=== PATIENT | female | born 2000 | race Caucasian/White ===

== ENCOUNTER → 2022-01-25 | Outpatient (REF) | payer BC | LOC: M WUC 17:41 | PROVIDERS: ATTEND Physician Assistant | DX: N39.0 Urinary tract infection, site not specified (principal) ==

== ENCOUNTER → 2022-02-12 | Outpatient (REF) | LOC: M LABSMTC 09:53 | PROVIDERS: ATTEND Family Medicine | DX: Z20.822 Contact with and (suspected) exposure to COVID-19 (principal) ==

== ENCOUNTER → 2022-03-07 | Outpatient (CLI) | payer BC ==
[2022-03-07 13:48] LABS: BLOOD UREA NITROGEN 10 MG/DL (9-23); CALCIUM LEVEL 9.2 MG/DL (8.5-10.1); CARBON DIOXIDE LEVEL 27 MMOL/L (20-31); CHLORIDE LEVEL 106 MMOL/L (98-107); CHOLESTEROL LEVEL 127 MG/DL (<200); CHOLESTEROL RISK RATIO 2.42 (<5); CREATININE FOR GFR 0.68 MG/DL (0.55-1.30); GLOMERULAR FILTRATION RATE > 60.0 (>60); GLUCOSE, FASTING 88 MG/DL (60-100); HDL CHOLESTEROL 52.3 MG/DL (>40); LDL CHOLESTEROL 66.9 MG/DL (<100); NON-HDL-C 75 MG/DL; POTASSIUM SERUM 4.6 MMOL/L (3.5-5.1); SODIUM LEVEL 139 MMOL/L (136-145); TRIGLYCERIDES LEVEL 39 MG/DL (<150)
== END ==
LOC: M PLALAB 10:00
PROVIDERS: ATTEND Family Medicine
DX: Z13.220 Encounter for screening for lipoid disorders (principal); Z13.1 Encounter for screening for diabetes mellitus

== ENCOUNTER → 2022-03-19 | Outpatient (REF) | payer BC | LOC: M SFHCPLAZ 12:52 | PROVIDERS: ATTEND Family Medicine | DX: Z32.01 Encounter for pregnancy test, result positive (principal) ==

== ENCOUNTER → 2022-04-25 | Outpatient (CLI) | payer BC ==
[2022-04-25 14:27] LABS: HEMATOCRIT 40.1 % (36.0-47.0); MEAN CORPUSCULAR HEMOGLOBIN 31.3 pg (27.0-33.0); MEAN CORPUSCULAR HGB CONC 32.4 g/dl (32.0-36.5); MEAN CORPUSCULAR VOLUME 96.6 fl (80.0-96.0); PLATELET COUNT, AUTOMATED 309 10^3/uL (150-450); RED BLOOD COUNT 4.15 10^6/uL (4.00-5.40); WHITE BLOOD COUNT 12.5 10^3/uL (4.0-10.0)
[2022-04-25 15:27] LABS: HIV 1&2 SCREEN CENTAUR NEGATIVE (NEGATIVE)
[2022-04-25 15:35] LABS: HEPATITIS C VIRUS ABY INDEX 0.1 INDEX (<0.8)
[2022-04-25 16:39] LABS: GC DNA AMPLIFICATION NEGATIVE (NEGATIVE)
== END ==
LOC: M PLALAB 11:22
PROVIDERS: ATTEND Advanced Practice Midwife
DX: Z34.80 Encounter for supervision of other normal pregnancy, unspecified trimester (principal)

== ENCOUNTER 2022-06-04 15:26 | Emergency (ER) | payer BC ==
[~2022-06-04] VITALS: Ht 162.6 cm; Wt 84.3 kg
[2022-06-04] MEDS ORDERED: NS 1,000 ML IV ONE (17:40)
[2022-06-04] MEDS ORDERED: ONDANSETRON 4MG 2ML VIAL IV ONE (17:40)
[2022-06-04] MEDS ORDERED: ACETAMINOPHEN TAB 650MG DOSE (2X325MG) PO ONE (17:40)
[2022-06-04 18:50] VITALS: BP 123/65
== END 2022-06-04 19:16 | disposition home or self-care (01) ==
LOC: M ED 15:26
DX: O99.512 Diseases of the respiratory system complicating pregnancy, second trimester (principal); J06.9 Acute upper respiratory infection, unspecified; O98.512 Other viral diseases complicating pregnancy, second trimester; B34.1 Enterovirus infection, unspecified; B34.8 Other viral infections of unspecified site; Z3A.16 16 weeks gestation of pregnancy
CPT/HCPCS: 87486; 87581; 87633; 87798; 96361; 96374; 99284; J2405

== ENCOUNTER → 2022-06-25 | Outpatient (CLI) | payer BC | LOC: M RAD 06:26 | PROVIDERS: ATTEND Obstetrics & Gynecology | DX: Z34.92 Encounter for supervision of normal pregnancy, unspecified, second trimester (principal); Z3A.18 18 weeks gestation of pregnancy ==

== ENCOUNTER 2022-07-08 11:40 | Outpatient (CLI) | payer BC ==
[~2022-07-08] VITALS: Ht 160 cm; Wt 85.5 kg
[2022-07-08 12:01] VITALS: BP 130/67
[2022-07-08] MEDS ORDERED: PRENTAB9 PO (12:06)
[2022-07-08] MEDS ORDERED: HOME MED LIST COMPLETE! XX SCH (12:10)
[2022-07-08 12:30] LABS: HEMATOCRIT 36.5 % (36.0-47.0); HEMOGLOBIN 12.3 g/dl (12.0-15.5); MEAN CORPUSCULAR HEMOGLOBIN 31.7 pg (27.0-33.0); MEAN CORPUSCULAR HGB CONC 33.7 g/dl (32.0-36.5); MEAN CORPUSCULAR VOLUME 94.1 fl (80.0-96.0); PLATELET COUNT, AUTOMATED 283 10^3/uL (150-450); RED BLOOD COUNT 3.88 10^6/uL (4.00-5.40); WHITE BLOOD COUNT 16.2 10^3/uL (4.0-10.0)
[2022-07-08 12:58] LABS: ALBUMIN 2.7 G/DL (3.2-5.2); ALKALINE PHOSPHATASE 84 U/L (46-116); ALT/SGPT 16 U/L (7.0-40); AST/SGOT 10 U/L (<34); BILIRUBIN,TOTAL 0.3 MG/DL (0.3-1.2); BLOOD UREA NITROGEN 7 MG/DL (9-23); CALCIUM LEVEL 8.3 MG/DL (8.5-10.1); CARBON DIOXIDE LEVEL 21 MMOL/L (20-31); CHLORIDE LEVEL 108 MMOL/L (98-107); CREATININE FOR GFR 0.44 MG/DL (0.55-1.30); GLOMERULAR FILTRATION RATE > 60.0 (>60); GLUCOSE, FASTING 132 MG/DL (60-100); POTASSIUM SERUM 3.3 MMOL/L (3.5-5.1); SODIUM LEVEL 137 MMOL/L (136-145); TOTAL PROTEIN 6.1 G/DL (5.7-8.2)
[2022-07-08 13:04] LABS: APPEARANCE, URINE CLOUDY (CLEAR); BACTERIA, URINE AUTO NEGATIVE (NEGATIVE); BILIRUBIN, URINE AUTO NEGATIVE (NEGATIVE); BLOOD, URINE BLOOD NEGATIVE (NEGATIVE); COLOR, URINE YELLOW (YELLOW); GLUCOSE, URINE (UA) AUTO 1+ mg/dL (NEGATIVE); KETONE, URINE AUTO NEGATIVE (NEGATIVE); LEUKOCYTE ESTERASE, URINE AUTO NEGATIVE (NEGATIVE); MUCUS, URINE SMALL (NEGATIVE); NITRITE, URINE AUTO NEGATIVE (NEGATIVE); PROTEIN, URINE AUTO NEGATIVE (NEGATIVE); RBC, URINE AUTO 1 /HPF (0-3); SPECIFIC GRAVITY URINE AUTO 1.013 (1.002-1.035); SQUAMOUS EPITHELIAL CELL UR AU 4 /HPF (0-6); UROBILINOGEN, URINE AUTO 0.2 mg/dL (0.0-2.0); WBC, URINE AUTO 2 /HPF (0-3)
== END 2022-07-08 13:39 | disposition home or self-care (01) ==
LOC: M LDO 11:40
PROVIDERS: ATTEND Obstetrics & Gynecology
DX: O36.8120 Decreased fetal movements, second trimester, not applicable or unspecified (principal); O26.892 Other specified pregnancy related conditions, second trimester; R06.02 Shortness of breath; Z3A.20 20 weeks gestation of pregnancy
CPT/HCPCS: 36415; 59025; 80053; 81001; 85027; G0463

== ENCOUNTER 2022-08-12 22:09 | Outpatient (CLI) | payer BC ==
[~2022-08-12] VITALS: Ht 162.6 cm; Wt 87.3 kg
[~2022-08-12 22:09] MED LIST: PRENTAB9 PO
[2022-08-12 22:20] VITALS: BP 138/76
[2022-08-12] MEDS ORDERED: ONDA4TAB6 PO (22:33)
[2022-08-12] MEDS ORDERED: TUMS500C PO (22:33)
[2022-08-12 23:34] VITALS: BP 130/74
== END 2022-08-12 23:36 | disposition home or self-care (01) ==
LOC: M LDO 22:09
PROVIDERS: ATTEND Obstetrics & Gynecology
DX: O36.8120 Decreased fetal movements, second trimester, not applicable or unspecified (principal); Z3A.25 25 weeks gestation of pregnancy; Z91.010 Allergy to peanuts; Z91.030 Bee allergy status
CPT/HCPCS: 59025; G0463

== ENCOUNTER → 2022-08-19 | Outpatient (CLI) | payer BC ==
[~2022-08-19] MED LIST changes: +ONDA4TAB6 PO; +TUMS500C PO
== END ==
LOC: M WHC 10:52
PROVIDERS: ATTEND Advanced Practice Midwife
DX: Z34.82 Encounter for supervision of other normal pregnancy, second trimester (principal)

== ENCOUNTER → 2022-08-19 | Outpatient (CLI) | payer BC ==
[2022-08-19 08:20] LABS: HEMOGLOBIN 11.7 g/dl (12.0-15.5); MEAN CORPUSCULAR HEMOGLOBIN 31.3 pg (27.0-33.0); MEAN CORPUSCULAR HGB CONC 32.5 g/dl (32.0-36.5); MEAN CORPUSCULAR VOLUME 96.3 fl (80.0-96.0); PLATELET COUNT, AUTOMATED 303 10^3/uL (150-450); RED BLOOD COUNT 3.74 10^6/uL (4.00-5.40); WHITE BLOOD COUNT 13.6 10^3/uL (4.0-10.0)
== END ==
LOC: M LAB 06:35
PROVIDERS: ATTEND Advanced Practice Midwife
DX: Z34.82 Encounter for supervision of other normal pregnancy, second trimester (principal)

== ENCOUNTER → 2022-09-26 | Outpatient (CLI) | payer BC ==
[~2022-09-26] MED LIST changes: +FAMO1TAB11; +MACR100C43 PO
[2022-09-26 14:57] LABS: HEMATOCRIT 34.2 % (36.0-47.0); HEMOGLOBIN 11.1 g/dl (12.0-15.5); MEAN CORPUSCULAR HEMOGLOBIN 30.5 pg (27.0-33.0); MEAN CORPUSCULAR HGB CONC 32.5 g/dl (32.0-36.5); PLATELET COUNT, AUTOMATED 342 10^3/uL (150-450); RED BLOOD COUNT 3.64 10^6/uL (4.00-5.40); URIC ACID 3.6 MG/DL (3.1-7.8); WHITE BLOOD COUNT 14.8 10^3/uL (4.0-10.0)
[2022-09-26 14:58] LABS: LDH LACTATE DEHYDROGENASE 155 U/L (120-246)
[2022-09-26 15:01] LABS: ALT/SGPT 24 U/L (7.0-40); AST/SGOT 16 U/L (<34); BILIRUBIN,TOTAL 0.3 MG/DL (0.3-1.2); GLOMERULAR FILTRATION RATE > 60.0 (>60)
[2022-09-26 15:17] LABS: TOTAL PROTEIN,RANDOM URINE 25.4 MG/DL (0.0-14.0)
[2022-09-26 15:22] LABS: CREATININE,RANDOM URINE 123.3 MG/DL
== END ==
LOC: M PLALAB 11:21
PROVIDERS: ATTEND Advanced Practice Midwife
DX: Z34.83 Encounter for supervision of other normal pregnancy, third trimester (principal)

== ENCOUNTER 2022-09-27 18:34 | Emergency (ER) | payer BC ==
[~2022-09-27] VITALS: Ht 162.6 cm; Wt 90.2 kg
[~2022-09-27 18:34] MED LIST changes: -FAMO1TAB11; -MACR100C43 PO
[2022-09-27] MEDS ORDERED: FAMO1TAB11 (18:43)
[2022-09-27 21:30] LABS: LIPASE 29 U/L (12-53)
[2022-09-27 21:31] LABS: CK-MB VALUE MASS < 1.0 NG/ML (<3.6)
[2022-09-27 21:34] LABS: FREE T4 0.82 NG/DL (0.89-1.76); THYROID STIMULATING HORMONE 1.724 uIU/ML (0.55-4.78)
[2022-09-27 21:47] LABS: ALBUMIN 2.6 G/DL (3.2-5.2); ALKALINE PHOSPHATASE 137 U/L (46-116); ALT/SGPT 22 U/L (7.0-40); AST/SGOT 13 U/L (<34); BILIRUBIN,DIRECT < 0.1 MG/DL (<0.4); BILIRUBIN,TOTAL 0.3 MG/DL (0.3-1.2); BLOOD UREA NITROGEN < 5 MG/DL (9-23); CARBON DIOXIDE LEVEL 22 MMOL/L (20-31); CHLORIDE LEVEL 106 MMOL/L (98-107); CPK CREATINE PHOSPHOKINASE 40 U/L (34-145); CREATININE FOR GFR 0.51 MG/DL (0.55-1.30); GLOMERULAR FILTRATION RATE > 60.0 (>60); GLUCOSE, FASTING 94 MG/DL (60-100); POTASSIUM SERUM 3.8 MMOL/L (3.5-5.1); SODIUM LEVEL 137 MMOL/L (136-145)
[2022-09-27 21:51] LABS: BASO % 0.1 % (0.0-1.0); EOS # 0.1 10^3/uL (0.0-0.5); EOS % 0.8 % (0.0-3.0); HEMATOCRIT 33.2 % (36.0-47.0); HEMOGLOBIN 10.6 g/dl (12.0-15.5); LYMPH % 12.7 % (24.0-44.0); MEAN CORPUSCULAR HEMOGLOBIN 29.9 pg (27.0-33.0); MEAN CORPUSCULAR HGB CONC 31.9 g/dl (32.0-36.5); MEAN CORPUSCULAR VOLUME 93.5 fl (80.0-96.0); MONO % 6.3 % (2.0-8.0); NEUTROPHILS # 12.5 10^3/uL (1.5-8.5); NEUTROPHILS % 79.6 % (36.0-66.0); PLATELET COUNT, AUTOMATED 330 10^3/uL (150-450); RED BLOOD COUNT 3.55 10^6/uL (4.00-5.40); WHITE BLOOD COUNT 15.7 10^3/uL (4.0-10.0)
[2022-09-27 22:48] LABS: ERYTHROCYTE SEDIMENTATION RATE 73 mm/hr (0-20)
[2022-09-27 22:55] LABS: INR 0.94; PROTHROMBIN TIME 12.8 SECONDS (12.5-14.5)
[2022-09-27 22:56] LABS: PARTIAL THROMBOPLASTIN TIME 27.4 SECONDS (24.8-34.2)
[2022-09-27 22:58] LABS: D-DIMER QUANT 781.05 ng/ml (<500)
[2022-09-27] MEDS ORDERED: ISOVUE-370 76% 100ML VIAL As Ordered ONE (23:28)
[2022-09-28] MEDS ORDERED: NITROFURANTOIN (MACROBID) 100 MG CAP PO ONE (00:25)
[2022-09-28] MEDS ORDERED: FAMOTIDINE 20MG/2ML VIAL IVP ONE (00:25)
[2022-09-28] MEDS ORDERED: MACR100C43 PO (00:48)
[2022-09-28 00:53] VITALS: BP 124/71; TEMP 97.1; O2SAT 98
== END 2022-09-28 01:06 | disposition home or self-care (01) ==
LOC: M ED 18:34
DX: O23.43 Unspecified infection of urinary tract in pregnancy, third trimester (principal); O99.413 Diseases of the circulatory system complicating pregnancy, third trimester; R07.9 Chest pain, unspecified; R00.0 Tachycardia, unspecified; Z3A.32 32 weeks gestation of pregnancy; Z79.810 Long term (current) use of selective estrogen receptor modulators (SERMs); Z79.83 Long term (current) use of bisphosphonates; Z79.899 Other long term (current) drug therapy
CPT/HCPCS: 71275; 80048; 80076; 81000; 81015; 82550; 82553; 83605; 83690; 83880; 84439; 84443; 84484; 85025; 85379; 85610; 85652; 85730; 87086; 93005; 93971; 96374; 99284; Q9967; S0028

== ENCOUNTER 2022-10-08 10:33 | Emergency (ER) | payer BC ==
[~2022-10-08] VITALS: Ht 162.6 cm; Wt 91.0 kg
[~2022-10-08 10:33] MED LIST changes: +FAMO1TAB11; +MACR100C43 PO
[2022-10-08 13:36] LABS: BASO % 0.1 % (0.0-1.0); EOS % 0.3 % (0.0-3.0); HEMATOCRIT 34.2 % (36.0-47.0); HEMOGLOBIN 10.9 g/dl (12.0-15.5); LYMPH # 1.8 10^3/uL (1.5-5.0); LYMPH % 11.3 % (24.0-44.0); MEAN CORPUSCULAR HEMOGLOBIN 29.5 pg (27.0-33.0); MEAN CORPUSCULAR HGB CONC 31.9 g/dl (32.0-36.5); MEAN CORPUSCULAR VOLUME 92.4 fl (80.0-96.0); MONO % 6.1 % (2.0-8.0); NEUTROPHILS # 12.8 10^3/uL (1.5-8.5); NEUTROPHILS % 81.7 % (36.0-66.0); PLATELET COUNT, AUTOMATED 347 10^3/uL (150-450); WHITE BLOOD COUNT 15.7 10^3/uL (4.0-10.0)
[2022-10-08 13:59] LABS: LIPASE 30 U/L (12-53)
[2022-10-08 14:00] LABS: CK-MB VALUE MASS < 1.0 NG/ML (<3.6)
[2022-10-08 14:02] LABS: ALBUMIN 2.7 G/DL (3.2-5.2); ALKALINE PHOSPHATASE 157 U/L (46-116); ALT/SGPT 17 U/L (7.0-40); AST/SGOT 29 U/L (<34); BILIRUBIN,DIRECT < 0.1 MG/DL (<0.4); BILIRUBIN,TOTAL 0.4 MG/DL (0.3-1.2); BLOOD UREA NITROGEN 6 MG/DL (9-23); CALCIUM LEVEL 8.3 MG/DL (8.5-10.1); CARBON DIOXIDE LEVEL 20 MMOL/L (20-31); CHLORIDE LEVEL 106 MMOL/L (98-107); CREATININE FOR GFR 0.48 MG/DL (0.55-1.30); GLOMERULAR FILTRATION RATE > 60.0 (>60); GLUCOSE, FASTING 77 MG/DL (60-100); POTASSIUM SERUM 4.6 MMOL/L (3.5-5.1); SODIUM LEVEL 135 MMOL/L (136-145); TOTAL PROTEIN 6.2 G/DL (5.7-8.2)
[2022-10-08 14:07] LABS: CPK CREATINE PHOSPHOKINASE 40 U/L (34-145)
[2022-10-08 14:30] LABS: AMORPHOUS SEDIMENT SMALL (NEGATIVE); APPEARANCE, URINE HAZY (CLEAR); BACTERIA, URINE AUTO NEGATIVE (NEGATIVE); BILIRUBIN, URINE AUTO NEGATIVE (NEGATIVE); BLOOD, URINE BLOOD NEGATIVE (NEGATIVE); COLOR, URINE YELLOW (YELLOW); GLUCOSE, URINE (UA) AUTO NEGATIVE (NEGATIVE); KETONE, URINE AUTO NEGATIVE (NEGATIVE); LEUKOCYTE ESTERASE, URINE AUTO 1+ (NEGATIVE); MUCUS, URINE SMALL (NEGATIVE); NITRITE, URINE AUTO NEGATIVE (NEGATIVE); PROTEIN, URINE AUTO NEGATIVE (NEGATIVE); RBC, URINE AUTO 0 /HPF (0-3); SQUAMOUS EPITHELIAL CELL UR AU 5 /HPF (0-6); UROBILINOGEN, URINE AUTO 0.2 mg/dL (0.0-2.0); WBC, URINE AUTO 4 /HPF (0-3)
[2022-10-08 14:48] LABS: TOTAL PROTEIN,RANDOM URINE 12.2 MG/DL (0.0-14.0)
[2022-10-08 14:52] LABS: CREATININE,RANDOM URINE 58.4 MG/DL
[2022-10-08 15:38] VITALS: BP 117/68; TEMP 98.2; O2SAT 97
== END 2022-10-08 16:28 | disposition home or self-care (01) ==
LOC: M ED 10:33
DX: O26.893 Other specified pregnancy related conditions, third trimester (principal); R07.9 Chest pain, unspecified; Z91.010 Allergy to peanuts; Z3A.34 34 weeks gestation of pregnancy; Z79.810 Long term (current) use of selective estrogen receptor modulators (SERMs); Z79.899 Other long term (current) drug therapy

== ENCOUNTER 2022-10-31 12:10 | Outpatient (CLI) | payer OTHER ==
[2022-10-31] VITALS (11 sets, daily range): BP systolic 96–132; BP diastolic 55–70; O2SAT 97
[~2022-10-31] VITALS: Ht 162.6 cm; Wt 94.2 kg
[~2022-10-31 12:10] MED LIST changes: -FAMO1TAB11; +FAMO1TAB11 PO
[2022-10-31] MEDS ORDERED: ACET325C5 PO (12:36)
[2022-10-31] MEDS ORDERED: HOME MED LIST COMPLETE! XX SCH (12:40)
[2022-10-31 13:57] LABS: HEMATOCRIT 30.2 % (36.0-47.0); HEMOGLOBIN 9.8 g/dl (12.0-15.5); MEAN CORPUSCULAR HEMOGLOBIN 28.9 pg (27.0-33.0); MEAN CORPUSCULAR HGB CONC 32.5 g/dl (32.0-36.5); MEAN CORPUSCULAR VOLUME 89.1 fl (80.0-96.0); PLATELET COUNT, AUTOMATED 323 10^3/uL (150-450); RED BLOOD COUNT 3.39 10^6/uL (4.00-5.40); WHITE BLOOD COUNT 11.1 10^3/uL (4.0-10.0)
[2022-10-31 14:02] LABS: TOTAL PROTEIN,RANDOM URINE < 6.0 MG/DL (0.0-14.0)
[2022-10-31 14:27] LABS: URIC ACID 4.1 MG/DL (3.1-7.8)
[2022-10-31 14:30] LABS: LDH LACTATE DEHYDROGENASE 161 U/L (120-246)
[2022-10-31 14:31] LABS: ALT/SGPT 28 U/L (7.0-40); AST/SGOT 14 U/L (<34); BILIRUBIN,TOTAL 0.3 MG/DL (0.3-1.2); CREATININE FOR GFR 0.45 MG/DL (0.55-1.30); GLOMERULAR FILTRATION RATE > 60.0 (>60)
== END 2022-10-31 15:38 | disposition home or self-care (01) ==
LOC: M LDO 12:10
PROVIDERS: ATTEND Advanced Practice Midwife
DX: O26.893 Other specified pregnancy related conditions, third trimester (principal); R03.0 Elevated blood-pressure reading, without diagnosis of hypertension; Z3A.37 37 weeks gestation of pregnancy
CPT/HCPCS: 59025; 82247; 82565; 82570; 83615; 84156; 84450; 84460; 84550; 85027; G0463

== ENCOUNTER 2022-11-06 18:33 | Inpatient (IN) | payer OTHER ==
[~2022-11-06] VITALS: Ht 160 cm; Wt 93.9 kg
[2022-11-06] VITALS (9 sets, daily range): BP systolic 119–147; BP diastolic 68–100
[~2022-11-06 18:33] MED LIST changes: +ACET325C5 PO
[2022-11-06] MEDS ORDERED: HOME MED LIST COMPLETE! XX SCH (18:55)
[2022-11-06 19:38] LABS: HEMATOCRIT 31.2 % (36.0-47.0); MEAN CORPUSCULAR HGB CONC 32.1 g/dl (32.0-36.5); MEAN CORPUSCULAR VOLUME 87.4 fl (80.0-96.0); PLATELET COUNT, AUTOMATED 317 10^3/uL (150-450); RED BLOOD COUNT 3.57 10^6/uL (4.00-5.40); WHITE BLOOD COUNT 12.7 10^3/uL (4.0-10.0)
[2022-11-06 20:04] LABS: LDH LACTATE DEHYDROGENASE 138 U/L (120-246)
[2022-11-06 20:06] LABS: CREATININE,RANDOM URINE 45.4 MG/DL
[2022-11-06 20:54] LABS: ALBUMIN 2.3 G/DL (3.2-5.2); ALKALINE PHOSPHATASE 190 U/L (46-116); ALT/SGPT 17 U/L (7.0-40); AST/SGOT < 8 U/L (<34); BILIRUBIN,TOTAL 0.3 MG/DL (0.3-1.2); BLOOD UREA NITROGEN < 5 MG/DL (9-23); CALCIUM LEVEL 8.3 MG/DL (8.5-10.1); CARBON DIOXIDE LEVEL 20 MMOL/L (20-31); CHLORIDE LEVEL 110 MMOL/L (98-107); CREATININE FOR GFR 0.49 MG/DL (0.55-1.30); GLOMERULAR FILTRATION RATE > 60.0 (>60); GLUCOSE, FASTING 84 MG/DL (60-100); POTASSIUM SERUM 3.9 MMOL/L (3.5-5.1); SODIUM LEVEL 140 MMOL/L (136-145); TOTAL PROTEIN 5.8 G/DL (5.7-8.2)
[2022-11-06] MEDS ORDERED: LIDOCAINE 1% MDV 20ML VIAL INFIL PRN (21:10)
[2022-11-06] MEDS ORDERED: METHYLERGONOVINE MALEATE 0.2MG/ML 1ML VIAL IM PRN (21:10)
[2022-11-06] MEDS ORDERED: TRANEXAMIC ACID INJection 1,000 MG in NS 100 ML IV PRN (21:10)
[2022-11-06] MEDS ORDERED: LACTATED RINGER'S 1000 ML IV STA (21:10)
[2022-11-06] MEDS ORDERED: CARBOPROST TROMETHAMINE 250 MCG/ML AMP IM PRN (21:10)
[2022-11-06] MEDS ORDERED: OXYTOCIN DRIP 30 UNITS in IV 1 EA IV PRN (21:10)
[2022-11-06 21:35] LABS: URIC ACID 4.3 MG/DL (3.1-7.8)
[2022-11-07] VITALS (35 sets, daily range): BP systolic 97–207; BP diastolic 50–105
[2022-11-07] MEDS: miSOPROStol 50MCG 1/2 TABLET PO SCH ×4 (01:02→13:18)
[2022-11-07] MEDS ORDERED: OXYTOCIN DRIP 30 UNITS in IV 1 EA IV SCH (16:50)
[2022-11-07] MEDS ORDERED: LR 1,000 ML IV SCH (16:50)
[2022-11-07] MEDS ORDERED: diphenhydrAMINE 50MG/ML VIAL IV PRN (22:05)
[2022-11-07] MEDS ORDERED: NALOXONE INJ 0.4MG/1ML VIAL IV PRN (22:05)
[2022-11-07] MEDS ORDERED: LR 500 ML IV PRN (22:05)
[2022-11-07] MEDS ORDERED: ONDANSETRON 4MG 2ML VIAL IV PRN (22:05)
[2022-11-07] MEDS ORDERED: EPIDURAL/PCA KEYS XX PRN (22:05)
[2022-11-07] MEDS ORDERED: FENTANYL/ROPIVACAINE/NACL BAG 100 ML EPIDURAL SCH (22:05)
[2022-11-07] MEDS: ePHEDrine SULFATE 25 MG/5 ML(5MG/ML) SYRINGE IVP PRN ×2 (23:12→23:17)
[2022-11-08] VITALS (21 sets, daily range): BP systolic 93–149; BP diastolic 50–89; TEMP 97.5; O2SAT 95–99
[2022-11-08] MEDS ORDERED: BICITRA 30ML SOLN UDC PO ONE (03:25)
[2022-11-08] MEDS ORDERED: ceFAZolin SOD 2 GM in IV 1 EA IV ONE (03:25)
[2022-11-08] MEDS ORDERED: AZITHROMYCIN INJ 500 MG, VIAL MATE ADAPTER 1 EACH in NS 250 ML IV ONE (03:25)
[2022-11-08] MEDS ORDERED: ONDANSETRON 4MG 2ML VIAL As Ordered ONE (03:34)
[2022-11-08] MEDS ORDERED: MORPHINE PRES-FREE INJ 10 MG/10 ML VIAL As Ordered ONE (03:34)
[2022-11-08] MEDS ORDERED: KETOROLAC 60MG 2ML VIAL As Ordered ONE (03:34)
[2022-11-08] MEDS ORDERED: METOCLOPRAMIDE INJ 10MG/2ML VIAL As Ordered ONE (03:34)
[2022-11-08] MEDS ORDERED: RHOGAM 300MCG (1500IU) INJ IM SCH (03:35)
[2022-11-08] MEDS ORDERED: LIDOCAINE 2% W/EPINEPHRINE 20ML VIAL **PRES FREE As Ordered ONE ×2 (03:35→05:06)
[2022-11-08] MEDS ORDERED: SIMETHICONE 80MG CHEW TAB PO PRN (03:35)
[2022-11-08] MEDS ORDERED: SODIUM BICARBONATE 8.4% INJ 50MEQ 50ML VIAL As Ordered ONE (03:35)
[2022-11-08] MEDS ORDERED: OXYTOCIN DRIP 30 UNITS in IV 1 EA IV SCH (03:35)
[2022-11-08] MEDS ORDERED: ACETAMINOPHEN 1000MG 100ML IV BAG As Ordered ONE (03:41)
[2022-11-08] MEDS ORDERED: OXYTOCIN 30UNITS IN 0.9% NaCl 500ML IV BAG As Ordered ONE ×2 (03:41→04:58)
[2022-11-08] MEDS ORDERED: MIDAZOLAM INJ 2MG/2ML VIAL As Ordered ONE (04:08)
[2022-11-08] MEDS ORDERED: KETAMINE HCL 200MG/20ML VIAL As Ordered ONE (04:08)
[2022-11-08] MEDS ORDERED: propofoL 200 MG/20 ML VIAL As Ordered ONE (04:10)
[2022-11-08] MEDS ORDERED: LIDOCAINE 1% MDV 20ML VIAL As Ordered ONE ×2 (04:11→04:18)
[2022-11-08] MEDS ORDERED: CHLOROPROCAINE PRES. FREE 3% 20ML VIAL As Ordered ONE (05:08)
[2022-11-08] MEDS ORDERED: fentaNYL 100 MCG/2 ML INJECTION As Ordered ONE (05:09)
[2022-11-08] MEDS: DOCUSATE SODIUM 100MG CAPSULE PO SCH ×2 (10:29→21:18)
[2022-11-08] MEDS: PRENATAL VITAMINS CHEWABLE TABLET PO SCH (10:29)
[2022-11-08] MEDS: KETOROLAC 30 MG/ML 1ML VIAL IV SCH ×3 (10:30→21:19)
[2022-11-09 02:00] VITALS: BP 124/67; O2SAT 96
[2022-11-09] MEDS: ACETAMINOPH W/CODEINE #3 TAB UD PO PRN ×2 (05:05→19:46)
[2022-11-09] MEDS: IBUPROFEN 800 MG TAB PO SCH ×3 (05:59→21:43)
[2022-11-09 06:00] VITALS: BP 121/65; O2SAT 97
[2022-11-09 07:19] LABS: HEMATOCRIT 26.4 % (36.0-47.0); HEMOGLOBIN 8.2 g/dl (12.0-15.5); MEAN CORPUSCULAR HEMOGLOBIN 27.2 pg (27.0-33.0); MEAN CORPUSCULAR HGB CONC 31.1 g/dl (32.0-36.5); MEAN CORPUSCULAR VOLUME 87.4 fl (80.0-96.0); PLATELET COUNT, AUTOMATED 268 10^3/uL (150-450); RED BLOOD COUNT 3.02 10^6/uL (4.00-5.40); WHITE BLOOD COUNT 13.3 10^3/uL (4.0-10.0)
[2022-11-09] MEDS: DOCUSATE SODIUM 100MG CAPSULE PO SCH ×2 (09:46→21:43)
[2022-11-09] MEDS: PRENATAL VITAMINS CHEWABLE TABLET PO SCH (09:46)
[2022-11-09 10:00] VITALS: BP 124/65; O2SAT 96
[2022-11-09 14:00] VITALS: BP 134/72; O2SAT 97
[2022-11-09 17:52] VITALS: BP 133/72; O2SAT 97
[2022-11-09 22:00] VITALS: BP_SYST 109; BP_SYST 142; BP_DIAS 58; BP_DIAS 87; O2SAT 96
[2022-11-10 02:00] VITALS: BP 119/58; O2SAT 98
[2022-11-10 06:00] VITALS: BP 126/66; O2SAT 97
[2022-11-10] MEDS: IBUPROFEN 800 MG TAB PO SCH (06:06)
[2022-11-10] MEDS: PRENATAL VITAMINS CHEWABLE TABLET PO SCH (08:02)
[2022-11-10] MEDS: DOCUSATE SODIUM 100MG CAPSULE PO SCH (08:02)
[2022-11-10] MEDS ORDERED: MEASLES,MUMPS,RUBELLA VACCINE INJ (MMR-II) SC.IMMUN ONE (09:00)
[2022-11-10 10:00] VITALS: BP 126/73; O2SAT 97
[2022-11-10] MEDS ORDERED: IBUP80TA PO (12:24)
[2022-11-10] MEDS ORDERED: COLA100C5 PO (12:24)
[2022-11-10] MEDS ORDERED: ACET-716 PO (12:24)
== END 2022-11-10 14:20 | disposition home or self-care (01) | DRG 773 ==
LOC: M LDO 18:33 → M LDI 21:06 → M OBS 11-08 06:15
PROVIDERS: ADMIT Obstetrics & Gynecology; ATTEND Obstetrics & Gynecology
PROC: 3E0P7GC Introduction of Other Therapeutic Substance into Female Reproductive, Via Natural or Artificial Opening (ICD-10-PCS; 2022-11-06)
PROC: 10D00Z1 Extraction of Products of Conception, Low, Open Approach (ICD-10-PCS; principal; 2022-11-08 03:39)
DX: O14.94 Unspecified pre-eclampsia, complicating childbirth (principal); Z3A.38 38 weeks gestation of pregnancy; Z91.018 Allergy to other foods; Z91.030 Bee allergy status; O69.81X0 Labor and delivery complicated by cord around neck, without compression, not applicable or unspecified; Z37.0 Single live birth

== ENCOUNTER → 2022-12-05 | Outpatient (REF) | payer OTHER ==
[~2022-12-05] MED LIST changes: +ACET-716 PO; +COLA100C5 PO; +IBUP80TA PO
== END ==
LOC: M SFHCPLAZ 14:57
PROVIDERS: ATTEND Family Medicine
DX: R39.9 Unspecified symptoms and signs involving the genitourinary system (principal)

== ENCOUNTER → 2023-02-25 | Outpatient (CLI) | payer OTHER | LOC: M LAB 13:02 | PROVIDERS: ATTEND Family Medicine | DX: Z32.01 Encounter for pregnancy test, result positive (principal) ==

== ENCOUNTER → 2023-04-15 | Outpatient (REF) | LOC: M EMP 14:05 | PROVIDERS: ATTEND Family Medicine | DX: Z11.52 Encounter for screening for COVID-19 (principal) ==

== ENCOUNTER → 2023-04-28 | Outpatient (CLI) | payer OTHER ==
[2023-04-28 15:56] LABS: HEMATOCRIT 38.9 % (36.0-47.0); HEMOGLOBIN 12.5 g/dl (12.0-15.5); MEAN CORPUSCULAR HEMOGLOBIN 28.9 pg (27.0-33.0); MEAN CORPUSCULAR HGB CONC 32.1 g/dl (32.0-36.5); MEAN CORPUSCULAR VOLUME 89.8 fl (80.0-96.0); PLATELET COUNT, AUTOMATED 377 10^3/uL (150-450); RED BLOOD COUNT 4.33 10^6/uL (4.00-5.40); WHITE BLOOD COUNT 12.2 10^3/uL (4.0-10.0)
[2023-04-28 15:59] LABS: URIC ACID 3.9 MG/DL (3.1-7.8)
[2023-04-28 16:01] LABS: LDH LACTATE DEHYDROGENASE 138 U/L (120-246)
[2023-04-28 16:02] LABS: ALT/SGPT 21 U/L (7.0-40); AST/SGOT < 8 U/L (<34); BILIRUBIN,TOTAL 0.2 MG/DL (0.3-1.2); CREATININE FOR GFR 0.53 MG/DL (0.55-1.30); GLOMERULAR FILTRATION RATE > 60.0 (>60)
[2023-04-28 16:11] LABS: TOTAL PROTEIN,RANDOM URINE 9.2 MG/DL (0.0-14.0)
[2023-04-28 16:16] LABS: CREATININE,RANDOM URINE 105.6 MG/DL
[2023-04-28 16:35] LABS: HIV 1&2 SCREEN NEGATIVE (NEGATIVE)
[2023-04-28 16:44] LABS: HEPATITIS C VIRUS ABY INDEX 0.02 INDEX (<0.8)
[2023-04-28 17:09] LABS: CHLAMYDIA DNA AMPLIFICATION NEGATIVE (NEGATIVE); GC DNA AMPLIFICATION NEGATIVE (NEGATIVE)
== END ==
LOC: M PLALAB 14:28
PROVIDERS: ATTEND Advanced Practice Midwife
DX: Z34.81 Encounter for supervision of other normal pregnancy, first trimester (principal)

== ENCOUNTER → 2023-04-28 | Outpatient (REF) | payer OTHER | LOC: M PLALAB 13:54 | PROVIDERS: ATTEND Advanced Practice Midwife | DX: Z34.81 Encounter for supervision of other normal pregnancy, first trimester (principal) ==

== ENCOUNTER → 2023-06-10 | Outpatient (CLI) | payer OTHER | LOC: M RAD 13:33 | PROVIDERS: ATTEND Advanced Practice Midwife | DX: Z34.82 Encounter for supervision of other normal pregnancy, second trimester (principal) ==

== ENCOUNTER 2023-07-12 15:30 | Emergency (ER) | payer OTHER ==
[~2023-07-12] VITALS: Ht 160 cm; Wt 88.9 kg
[2023-07-12] MEDS: NS 1,000 ML IV ONE (16:10)
[2023-07-12 16:22] LABS: BASO % 0.2 % (0.0-1.0); EOS # 0.1 10^3/uL (0.0-0.5); EOS % 0.4 % (0.0-3.0); HEMATOCRIT 34.5 % (36.0-47.0); HEMOGLOBIN 11.5 g/dl (12.0-15.5); LYMPH # 1.7 10^3/uL (1.5-5.0); MEAN CORPUSCULAR HEMOGLOBIN 29.5 pg (27.0-33.0); MEAN CORPUSCULAR HGB CONC 33.3 g/dl (32.0-36.5); MEAN CORPUSCULAR VOLUME 88.5 fl (80.0-96.0); MONO # 0.6 10^3/uL (0.0-0.8); MONO % 4.9 % (2.0-8.0); NEUTROPHILS # 10.3 10^3/uL (1.5-8.5); PLATELET COUNT, AUTOMATED 292 10^3/uL (150-450); WHITE BLOOD COUNT 12.7 10^3/uL (4.0-10.0)
[2023-07-12 16:48] LABS: CK-MB VALUE MASS < 1.0 NG/ML (<3.6)
[2023-07-12 16:49] LABS: LIPASE 37 U/L (12-53)
[2023-07-12 16:51] LABS: ALBUMIN 2.7 G/DL (3.2-5.2); ALKALINE PHOSPHATASE 109 U/L (46-116); ALT/SGPT 18 U/L (7.0-40); AST/SGOT 11 U/L (<34); BILIRUBIN,DIRECT < 0.1 MG/DL (<0.4); BILIRUBIN,TOTAL 0.2 MG/DL (0.3-1.2); BLOOD UREA NITROGEN 9 MG/DL (9-23); CALCIUM LEVEL 8.5 MG/DL (8.5-10.1); CARBON DIOXIDE LEVEL 21 MMOL/L (20-31); CHLORIDE LEVEL 110 MMOL/L (98-107); CREATININE FOR GFR 0.46 MG/DL (0.55-1.30); GLOMERULAR FILTRATION RATE > 60.0 (>60); GLUCOSE, FASTING 110 MG/DL (60-100); POTASSIUM SERUM 3.9 MMOL/L (3.5-5.1); SODIUM LEVEL 135 MMOL/L (136-145); TOTAL PROTEIN 6.3 G/DL (5.7-8.2)
[2023-07-12 16:53] LABS: FREE T4 0.96 NG/DL (0.89-1.76); THYROID STIMULATING HORMONE 1.199 uIU/ML (0.55-4.78)
[2023-07-12 16:57] LABS: CPK CREATINE PHOSPHOKINASE 45 U/L (34-145); MB/CK RELATIVE INDEX 2.22 (< OR =4)
[2023-07-12 17:52] LABS: CK-MB VALUE MASS < 1.0 NG/ML (<3.6)
[2023-07-12 17:55] LABS: CPK CREATINE PHOSPHOKINASE 36 U/L (34-145); MB/CK RELATIVE INDEX 2.77 (< OR =4)
[2023-07-12 18:15] VITALS: BP 103/59; TEMP 97.3; O2SAT 99
== END 2023-07-12 18:21 | disposition home or self-care (01) ==
LOC: M ED 15:30
DX: R07.9 Chest pain, unspecified (principal); R00.0 Tachycardia, unspecified; I10 Essential (primary) hypertension; Z91.010 Allergy to peanuts; Z91.030 Bee allergy status; Z79.810 Long term (current) use of selective estrogen receptor modulators (SERMs); Z79.899 Other long term (current) drug therapy

== ENCOUNTER → 2023-07-15 | Outpatient (CLI) | payer OTHER | LOC: M WHC 11:29 | PROVIDERS: ATTEND Advanced Practice Midwife | DX: Z34.82 Encounter for supervision of other normal pregnancy, second trimester (principal) ==

== ENCOUNTER → 2023-08-07 | Outpatient (CLI) | payer OTHER ==
[2023-08-07 11:55] LABS: HEMATOCRIT 34.3 % (36.0-47.0); HEMOGLOBIN 10.9 g/dl (12.0-15.5); MEAN CORPUSCULAR HEMOGLOBIN 28.5 pg (27.0-33.0); MEAN CORPUSCULAR HGB CONC 31.8 g/dl (32.0-36.5); MEAN CORPUSCULAR VOLUME 89.8 fl (80.0-96.0); PLATELET COUNT, AUTOMATED 312 10^3/uL (150-450); RED BLOOD COUNT 3.82 10^6/uL (4.00-5.40); WHITE BLOOD COUNT 12.4 10^3/uL (4.0-10.0)
== END ==
LOC: M LAB 09:52
PROVIDERS: ATTEND Obstetrics & Gynecology
DX: Z34.92 Encounter for supervision of normal pregnancy, unspecified, second trimester (principal)

== ENCOUNTER 2023-08-08 18:58 | Emergency (ER) | payer OTHER ==
[~2023-08-08] VITALS: Ht 162.6 cm; Wt 92.0 kg
[2023-08-08 19:55] LABS: BASO % 0.2 % (0.0-1.0); EOS # 0.1 10^3/uL (0.0-0.5); EOS % 0.7 % (0.0-3.0); HEMATOCRIT 32.1 % (36.0-47.0); HEMOGLOBIN 10.5 g/dl (12.0-15.5); LYMPH # 2.2 10^3/uL (1.5-5.0); LYMPH % 17.3 % (24.0-44.0); MEAN CORPUSCULAR HEMOGLOBIN 28.9 pg (27.0-33.0); MEAN CORPUSCULAR HGB CONC 32.7 g/dl (32.0-36.5); MEAN CORPUSCULAR VOLUME 88.4 fl (80.0-96.0); MONO # 0.9 10^3/uL (0.0-0.8); MONO % 6.7 % (2.0-8.0); NEUTROPHILS # 9.6 10^3/uL (1.5-8.5); NEUTROPHILS % 74.7 % (36.0-66.0); PLATELET COUNT, AUTOMATED 312 10^3/uL (150-450); RED BLOOD COUNT 3.63 10^6/uL (4.00-5.40); WHITE BLOOD COUNT 12.8 10^3/uL (4.0-10.0)
[2023-08-08 20:07] LABS: LIPASE 38 U/L (12-53)
[2023-08-08 20:10] LABS: ALBUMIN 2.4 G/DL (3.2-5.2); ALKALINE PHOSPHATASE 121 U/L (46-116); ALT/SGPT 26 U/L (7.0-40); AST/SGOT 29 U/L (<34); BILIRUBIN,DIRECT < 0.1 MG/DL (<0.4); BILIRUBIN,TOTAL 0.2 MG/DL (0.3-1.2); BLOOD UREA NITROGEN 10 MG/DL (9-23); CALCIUM LEVEL 8.7 MG/DL (8.5-10.1); CARBON DIOXIDE LEVEL 21 MMOL/L (20-31); CHLORIDE LEVEL 106 MMOL/L (98-107); CK-MB VALUE MASS < 1.0 NG/ML (<3.6); CREATININE FOR GFR 0.86 MG/DL (0.55-1.30); GLOMERULAR FILTRATION RATE > 60.0 (>60); GLUCOSE, FASTING 94 MG/DL (60-100); POTASSIUM SERUM 4.7 MMOL/L (3.5-5.1); SODIUM LEVEL 137 MMOL/L (136-145); THYROID STIMULATING HORMONE 1.331 uIU/ML (0.55-4.78); TOTAL PROTEIN 6.2 G/DL (5.7-8.2)
[2023-08-08 20:11] LABS: INR 1.07; PARTIAL THROMBOPLASTIN TIME 28.7 SECONDS (24.8-34.2); PROTHROMBIN TIME 13.6 SECONDS (12.5-14.5)
[2023-08-08 20:12] LABS: FREE T4 0.92 NG/DL (0.89-1.76)
[2023-08-08 20:29] LABS: CPK CREATINE PHOSPHOKINASE 48 U/L (34-145); HCG, SERUM QUANTITATIVE 10502.4 MIU/ML (<4.2); MB/CK RELATIVE INDEX 2.08 (< OR =4)
[2023-08-08] MEDS ORDERED: ISOVUE-370 76% 100ML VIAL As Ordered ONE (20:30)
[2023-08-08] MEDS ORDERED: HOME MED LIST COMPLETE! XX SCH (20:30)
[2023-08-08] MEDS: ACETAMINOPHEN TAB 650MG DOSE (2X325MG) PO ONE (20:48)
[2023-08-08 21:34] LABS: CK-MB VALUE MASS < 1.0 NG/ML (<3.6); CPK CREATINE PHOSPHOKINASE 49 U/L (34-145); MB/CK RELATIVE INDEX 2.04 (< OR =4)
[2023-08-08 22:44] VITALS: BP 108/57; TEMP 97.6; O2SAT 99
== END 2023-08-08 22:49 | disposition home or self-care (01) ==
LOC: M ED 18:58
DX: R07.9 Chest pain, unspecified (principal); Q34.1 Congenital cyst of mediastinum; R00.0 Tachycardia, unspecified; Z91.010 Allergy to peanuts; Z91.030 Bee allergy status; Z79.899 Other long term (current) drug therapy; Z79.810 Long term (current) use of selective estrogen receptor modulators (SERMs)
CPT/HCPCS: 36415; 71275; 80048; 80076; 82550; 82553; 83690; 84439; 84443; 84484; 84702; 85025; 85610; 85730; 93005; 93970; 99284; Q9967

== ENCOUNTER → 2023-08-11 | Outpatient (CLI) | payer OTHER | LOC: M WHC 07:11 | PROVIDERS: ATTEND Obstetrics & Gynecology | DX: Z34.92 Encounter for supervision of normal pregnancy, unspecified, second trimester (principal) ==

== ENCOUNTER → 2023-09-02 | Outpatient (CLI) | payer OTHER | LOC: M RAD 10:36 | PROVIDERS: ATTEND Advanced Practice Midwife | DX: Z34.83 Encounter for supervision of other normal pregnancy, third trimester (principal) ==

== ENCOUNTER → 2023-09-16 | Outpatient (CLI) | payer OTHER | LOC: M RAD 09:23 | PROVIDERS: ATTEND Advanced Practice Midwife | DX: Z34.83 Encounter for supervision of other normal pregnancy, third trimester (principal) ==

== ENCOUNTER 2023-09-25 16:48 | Outpatient (CLI) | payer OTHER ==
[~2023-09-25] VITALS: Ht 160 cm; Wt 94.7 kg
[~2023-09-25 16:48] MED LIST changes: +ONDA-282 PO; -ONDA4TAB6 PO
[2023-09-25 17:08] VITALS: BP 115/69; O2SAT 97
[2023-09-25] MEDS ORDERED: HOME MED LIST COMPLETE! XX SCH (17:20)
[2023-09-25 17:25] VITALS: BP 109/67
[2023-09-25 17:40] VITALS: BP 110/65
[2023-09-25 18:07] LABS: HEMATOCRIT 31.3 % (36.0-47.0); HEMOGLOBIN 9.7 g/dl (12.0-15.5); MEAN CORPUSCULAR HEMOGLOBIN 26.8 pg (27.0-33.0); MEAN CORPUSCULAR VOLUME 86.5 fl (80.0-96.0); PLATELET COUNT, AUTOMATED 295 10^3/uL (150-450); RED BLOOD COUNT 3.62 10^6/uL (4.00-5.40); WHITE BLOOD COUNT 11.9 10^3/uL (4.0-10.0)
[2023-09-25 18:08] LABS: URIC ACID 3.4 MG/DL (3.1-7.8)
[2023-09-25 18:12] LABS: LDH LACTATE DEHYDROGENASE 144 U/L (120-246)
[2023-09-25 18:13] LABS: ALT/SGPT 41 U/L (7.0-40); AST/SGOT 11 U/L (<34); BILIRUBIN,TOTAL 0.3 MG/DL (0.3-1.2); GLOMERULAR FILTRATION RATE > 60.0 (>60)
[2023-09-25 18:31] LABS: TOTAL PROTEIN,RANDOM URINE 45.1 MG/DL (0.0-14.0)
[2023-09-25 18:36] LABS: CREATININE,RANDOM URINE 187.9 MG/DL
[2023-09-25 18:44] VITALS: BP 114/65
== END 2023-09-25 19:35 ==
LOC: M LDO 16:48
PROVIDERS: ATTEND Advanced Practice Midwife
DX: O26.893 Other specified pregnancy related conditions, third trimester (principal); O34.219 Maternal care for unspecified type scar from previous cesarean delivery; R10.13 Epigastric pain; R51.9 Headache, unspecified; Z79.82 Long term (current) use of aspirin; Z87.59 Personal history of other complications of pregnancy, childbirth and the puerperium; Z3A.34 34 weeks gestation of pregnancy
CPT/HCPCS: 59025; 82247; 82570; 83615; 84156; 84450; 84460; 84550; 85027; G0463

== ENCOUNTER 2023-10-01 15:10 | Outpatient (CLI) | payer OTHER ==
[~2023-10-01] VITALS: Ht 160 cm; Wt 93.8 kg
[2023-10-01 15:40] VITALS: BP 126/75
[2023-10-01] MEDS ORDERED: HOME MED LIST COMPLETE! XX SCH (15:45)
[2023-10-01 16:47] LABS: HEMATOCRIT 31.7 % (36.0-47.0); HEMOGLOBIN 9.8 g/dl (12.0-15.5); MEAN CORPUSCULAR HEMOGLOBIN 26.1 pg (27.0-33.0); MEAN CORPUSCULAR HGB CONC 30.9 g/dl (32.0-36.5); MEAN CORPUSCULAR VOLUME 84.3 fl (80.0-96.0); PLATELET COUNT, AUTOMATED 254 10^3/uL (150-450); RED BLOOD COUNT 3.76 10^6/uL (4.00-5.40); WHITE BLOOD COUNT 12.2 10^3/uL (4.0-10.0)
[2023-10-01 17:01] VITALS: BP 114/69
[2023-10-01] MEDS: ACETAMINOPHEN 500 MG TAB PO ONE (17:14)
[2023-10-01 17:16] LABS: INR 0.98; PARTIAL THROMBOPLASTIN TIME 27.7 SECONDS (24.8-34.2); PROTHROMBIN TIME 12.7 SECONDS (12.5-14.5)
[2023-10-01] MEDS: LR 1,000 ML IV ONE (17:41)
[2023-10-01] MEDS: LR 1,000 ML IV SCH (17:41)
[2023-10-01 19:13] VITALS: BP 122/68
[2023-10-01 21:17] VITALS: BP 111/57
[2023-10-01 22:46] VITALS: BP 119/69
[2023-10-01 22:53] LABS: HEMATOCRIT 30.6 % (36.0-47.0); HEMOGLOBIN 9.3 g/dl (12.0-15.5); MEAN CORPUSCULAR HEMOGLOBIN 26.1 pg (27.0-33.0); MEAN CORPUSCULAR HGB CONC 30.4 g/dl (32.0-36.5); MEAN CORPUSCULAR VOLUME 85.7 fl (80.0-96.0); PLATELET COUNT, AUTOMATED 244 10^3/uL (150-450); RED BLOOD COUNT 3.57 10^6/uL (4.00-5.40); WHITE BLOOD COUNT 11.3 10^3/uL (4.0-10.0)
[2023-10-01 23:07] LABS: INR 1.03; PARTIAL THROMBOPLASTIN TIME 26.1 SECONDS (24.8-34.2); PROTHROMBIN TIME 13.2 SECONDS (12.5-14.5)
[2023-10-01 23:40] VITALS: BP 116/69
[2023-10-02 01:36] VITALS: BP 106/60
[2023-10-02 02:50] VITALS: BP 103/59
[2023-10-02] MEDS: MORPHINE 10 MG/ML 1ML VIAL IM ONE (02:50)
[2023-10-02] MEDS: MORPHINE 10 MG/ML 1ML VIAL IV ONE (02:51)
[2023-10-02 06:07] VITALS: BP 120/66
[2023-10-02 09:23] LABS: HEMOGLOBIN 9.6 g/dl (12.0-15.5); MEAN CORPUSCULAR HEMOGLOBIN 26.4 pg (27.0-33.0); MEAN CORPUSCULAR VOLUME 85.4 fl (80.0-96.0); PLATELET COUNT, AUTOMATED 242 10^3/uL (150-450); RED BLOOD COUNT 3.63 10^6/uL (4.00-5.40); WHITE BLOOD COUNT 13.2 10^3/uL (4.0-10.0)
[2023-10-02 09:33] LABS: INR 1.06; PARTIAL THROMBOPLASTIN TIME 26.3 SECONDS (24.8-34.2); PROTHROMBIN TIME 13.5 SECONDS (12.5-14.5)
== END 2023-10-02 13:15 | disposition home or self-care (01) ==
LOC: M LDO 15:10 → M LDI 19:05 → UNDOADMOB 19:05 → INTOOBSV 19:05 → M LDI 19:05 → OBSVTOIN 19:05 → UNDODISIN 10-02 13:15 → M LDO 10-02 13:15
PROVIDERS: ATTEND Obstetrics & Gynecology
DX: O26.893 Other specified pregnancy related conditions, third trimester (principal); O34.219 Maternal care for unspecified type scar from previous cesarean delivery; R10.2 Pelvic and perineal pain; M54.50 Low back pain, unspecified; I31.8 Other specified diseases of pericardium; Z87.59 Personal history of other complications of pregnancy, childbirth and the puerperium; Z3A.35 35 weeks gestation of pregnancy; W10.9XXA Fall (on) (from) unspecified stairs and steps, initial encounter; Y92.008 Other place in unspecified non-institutional (private) residence as the place of occurrence of the external cause
CPT/HCPCS: 36415; 59025; 76815; 76820; 85027; 85384; 85610; 85730; 86850; 86900; 86901; 96360; 96361; G0463

== ENCOUNTER 2023-10-04 09:15 | Outpatient (CLI) | payer OTHER ==
[~2023-10-04] VITALS: Ht 157.5 cm; Wt 94.1 kg
[2023-10-04 09:36] VITALS: BP 128/69
[2023-10-04] MEDS ORDERED: HOME MED LIST COMPLETE! XX SCH (09:45)
[2023-10-04] MEDS ORDERED: ACET325C5 PO (09:45)
[2023-10-04 10:17] LABS: HEMOGLOBIN 9.6 g/dl (12.0-15.5); MEAN CORPUSCULAR HEMOGLOBIN 26.4 pg (27.0-33.0); MEAN CORPUSCULAR VOLUME 85.4 fl (80.0-96.0); PLATELET COUNT, AUTOMATED 247 10^3/uL (150-450); RED BLOOD COUNT 3.63 10^6/uL (4.00-5.40); WHITE BLOOD COUNT 11.6 10^3/uL (4.0-10.0)
[2023-10-04 10:30] LABS: INR 1.05; PARTIAL THROMBOPLASTIN TIME 26.1 SECONDS (24.8-34.2); PROTHROMBIN TIME 13.4 SECONDS (12.5-14.5)
[2023-10-04 11:03] VITALS: BP 91/56
[2023-10-04 11:26] VITALS: BP 116/57
== END 2023-10-04 13:00 | disposition home or self-care (01) ==
LOC: M LDO 09:15
PROVIDERS: ATTEND Obstetrics & Gynecology
DX: O47.03 False labor before 37 completed weeks of gestation, third trimester (principal); O26.893 Other specified pregnancy related conditions, third trimester; O34.219 Maternal care for unspecified type scar from previous cesarean delivery; R42 Dizziness and giddiness; Z3A.36 36 weeks gestation of pregnancy
CPT/HCPCS: 36415; 59025; 85027; 85384; 85460; 85610; 85730; G0463

== ENCOUNTER → 2023-10-08 | Outpatient (REF) | payer OTHER | LOC: M PLALAB 13:22 | PROVIDERS: ATTEND Advanced Practice Midwife | DX: Z36.89 Encounter for other specified antenatal screening (principal); Z3A.36 36 weeks gestation of pregnancy ==

== ENCOUNTER 2023-10-13 14:20 | Outpatient (CLI) | payer OTHER ==
[~2023-10-13] VITALS: Ht 157.5 cm; Wt 94.8 kg
[~2023-10-13 14:20] MED LIST changes: -OXYC1TAB23 PO
[2023-10-13 14:47] VITALS: BP 109/69
[2023-10-13 16:22] VITALS: BP 114/59
[2023-10-13] MEDS ORDERED: HOME MED LIST COMPLETE! XX SCH (18:40)
[2023-10-14] MEDS ORDERED: OXYC1TAB23 PO (08:21)
[2023-10-14] MEDS ORDERED: IBUP80TA PO (08:21)
[2023-10-14] MEDS ORDERED: COLA100C5 PO (08:21)
== END 2023-10-13 17:13 | disposition home or self-care (01) ==
LOC: M LDO 14:20
PROVIDERS: ATTEND Specialist
DX: O47.1 False labor at or after 37 completed weeks of gestation (principal); O34.219 Maternal care for unspecified type scar from previous cesarean delivery; Z3A.37 37 weeks gestation of pregnancy; Z87.59 Personal history of other complications of pregnancy, childbirth and the puerperium
CPT/HCPCS: 59025; G0463

== ENCOUNTER 2023-10-13 21:00 | Inpatient (IN) | payer OTHER ==
[~2023-10-13] VITALS: Ht 157.5 cm; Wt 95.1 kg
[2023-10-13 21:17] VITALS: BP 115/69; O2SAT 99
[2023-10-13] MEDS ORDERED: HOME MED LIST COMPLETE! XX SCH (21:20)
[2023-10-13] MEDS: LACTATED RINGER'S 1000 ML IV STA (22:00)
[2023-10-13 22:01] VITALS: BP 112/72
[2023-10-13 22:11] LABS: HEMATOCRIT 30.4 % (36.0-47.0); HEMOGLOBIN 9.5 g/dl (12.0-15.5); MEAN CORPUSCULAR HGB CONC 31.3 g/dl (32.0-36.5); MEAN CORPUSCULAR VOLUME 83.3 fl (80.0-96.0); PLATELET COUNT, AUTOMATED 301 10^3/uL (150-450); RED BLOOD COUNT 3.65 10^6/uL (4.00-5.40); WHITE BLOOD COUNT 12.1 10^3/uL (4.0-10.0)
[2023-10-13] MEDS: ceFAZolin SOD 2 GM in IV 1 EA IV ONE (22:27)
[2023-10-13] MEDS: LR 1,000 ML IV SCH ×2 (22:32→23:45)
[2023-10-13] MEDS ORDERED: ONDANSETRON 4MG 2ML VIAL IV PRN (22:45)
[2023-10-13] MEDS ORDERED: METOCLOPRAMIDE INJ 10MG/2ML VIAL IV PRN (22:45)
[2023-10-13] MEDS ORDERED: diphenhydrAMINE 50MG/ML VIAL IV PRN (22:45)
[2023-10-13] MEDS ORDERED: oxyCODONE 5MG TAB PO PRN (22:45)
[2023-10-13] MEDS ORDERED: NALOXONE INJ 0.4MG/1ML VIAL IV PRN ×2 (22:45)
[2023-10-13] MEDS ORDERED: fentaNYL 100 MCG/2 ML INJECTION IV PRN (22:45)
[2023-10-13] MEDS ORDERED: SLF 3 ML SYR IV SCH (22:45)
[2023-10-13] MEDS ORDERED: **NOTE PATIENT COMMENT** MISC XX SCH (22:45)
[2023-10-13] MEDS ORDERED: ACETAMINOPHEN 1000MG 100ML IV BAG As Ordered ONE (22:58)
[2023-10-13] MEDS ORDERED: MORPHINE PRES-FREE INJ 10 MG/10 ML VIAL As Ordered ONE (22:58)
[2023-10-13] MEDS ORDERED: KETOROLAC 60MG 2ML VIAL As Ordered ONE (22:58)
[2023-10-13] MEDS ORDERED: OXYTOCIN 30UNITS IN 0.9% NaCl 500ML IV BAG As Ordered ONE (22:58)
[2023-10-13] MEDS ORDERED: ONDANSETRON 4MG 2ML VIAL As Ordered ONE (22:58)
[2023-10-13] MEDS ORDERED: PHENYLephrine 500MCG 5ML (100MCG/ML) SYRINGE As Ordered ONE (23:02)
[2023-10-13] MEDS ORDERED: ePHEDrine SULFATE 25 MG/5 ML(5MG/ML) SYRINGE As Ordered ONE (23:07)
[2023-10-13 23:08] LABS: HEPATITIS C VIRUS ABY INDEX < 0.02 INDEX (<0.8)
[2023-10-13 23:30] LABS: CORD GAS ABE V -4.1; CORD GAS HCO3 V 21.8 MMOL/L; CORD GAS O2 SAT V 62.2 %; CORD GAS PCO2 V 43.1 mmHg; CORD GAS PH V 7.322 UNITS; CORD GAS PO2 V 24.8 mmHg; CORD GAS SBC V 20.3 MMOL/L; CORD GAS TCO2 V 23.1 MMOL/L
[2023-10-13 23:33] LABS: CORD GAS ABE A -3.3; CORD GAS HCO3 A 23.5 MMOL/L; CORD GAS PCO2 A 48.7 mmHg; CORD GAS PH A 7.301 UNITS; CORD GAS PO2 A 28.7 mmHg; CORD GAS SBC A 21.1 MMOL/L
[2023-10-13] MEDS ORDERED: PERCOCET 5MG/325MG TAB PO PRN ×2 (23:45)
[2023-10-13] MEDS ORDERED: SIMETHICONE 80MG CHEW TAB PO PRN (23:45)
[2023-10-13] MEDS ORDERED: RHO(D) IMMUNE GLOBULIN/MALTOSE 500MCG(2500IU)/2.2ML VIAL (WINRHO) IM SCH (23:45)
[2023-10-13] MEDS ORDERED: DOCUSATE SODIUM 100MG CAPSULE PO PRN (23:45)
[2023-10-14] VITALS (11 sets, daily range): BP systolic 93–108; BP diastolic 48–64; TEMP 96.7; O2SAT 96–99
[2023-10-14] MEDS: OXYTOCIN DRIP 30 UNITS in IV 1 EA IV SCH (00:05)
[2023-10-14] MEDS: METOCLOPRAMIDE INJ 10MG/2ML VIAL IV PRN (00:28)
[2023-10-14] MEDS: KETOROLAC 30 MG/ML 1ML VIAL IV SCH (05:03)
[2023-10-14] MEDS: ONDANSETRON 4MG 2ML VIAL IV PRN (06:44)
[2023-10-14 08:10] LABS: HEMATOCRIT 27.7 % (36.0-47.0); HEMOGLOBIN 8.4 g/dl (12.0-15.5); MEAN CORPUSCULAR HEMOGLOBIN 25.8 pg (27.0-33.0); MEAN CORPUSCULAR HGB CONC 30.3 g/dl (32.0-36.5); MEAN CORPUSCULAR VOLUME 85.2 fl (80.0-96.0); PLATELET COUNT, AUTOMATED 255 10^3/uL (150-450); RED BLOOD COUNT 3.25 10^6/uL (4.00-5.40); WHITE BLOOD COUNT 15.7 10^3/uL (4.0-10.0)
[2023-10-14] MEDS ORDERED: IBUP80TA PO (08:21)
[2023-10-14] MEDS ORDERED: OXYC1TAB23 PO (08:21)
[2023-10-14] MEDS ORDERED: COLA100C5 PO (08:21)
[2023-10-14] MEDS: PRENATAL VITAMINS CHEWABLE TABLET PO SCH (09:00)
[2023-10-14] MEDS: LR 1,000 ML IV ONE (11:48)
[2023-10-15] MEDS: IBUPROFEN 800 MG TAB PO SCH (01:44)
[2023-10-15 02:00] VITALS: BP 100/53; O2SAT 98
[2023-10-15] MEDS ORDERED: OXYTOCIN INJ 10UNITS/ML 1ML VIAL As Ordered ONE (04:45)
[2023-10-15 06:00] VITALS: BP 116/53; O2SAT 98
[2023-10-15] MEDS: MEASLES,MUMPS,RUBELLA VACCINE INJ (MMR-II) SC.IMMUN ONE (08:10)
[2023-10-15 10:00] VITALS: BP 115/58; O2SAT 98
== END 2023-10-15 12:38 | disposition home or self-care (01) | DRG 773 ==
LOC: M LDO 21:00 → M LDI 21:47 → M OBS 10-14 01:40
PROVIDERS: ADMIT Specialist; ATTEND Specialist
PROC: 10D00Z1 Extraction of Products of Conception, Low, Open Approach (ICD-10-PCS; principal; 2023-10-13 21:50)
DX: O34.211 Maternal care for low transverse scar from previous cesarean delivery (principal); Z3A.37 37 weeks gestation of pregnancy; Z91.018 Allergy to other foods; Z91.030 Bee allergy status; Z37.0 Single live birth; O75.82 Onset (spontaneous) of labor after 37 completed weeks of gestation but before 39 completed weeks gestation, with delivery by (planned) cesarean section

== ENCOUNTER → 2023-10-13 | Outpatient (CLI) | payer OTHER ==
[~2023-10-13] MED LIST changes: +OXYC1TAB23 PO
== END ==
LOC: M RAD 08:08
PROVIDERS: ATTEND Advanced Practice Midwife
DX: Z34.83 Encounter for supervision of other normal pregnancy, third trimester (principal)

== ENCOUNTER → 2024-02-05 | Outpatient (REF) | payer OTHER ==
[~2024-02-05] MED LIST changes: +OXYC1TAB23 PO
[2024-02-05 20:08] LABS: APPEARANCE, URINE HAZY (CLEAR); BACTERIA, URINE AUTO 1+ (NEGATIVE); BILIRUBIN, URINE AUTO NEGATIVE (NEGATIVE); BLOOD, URINE BLOOD 2+ (NEGATIVE); COLOR, URINE YELLOW (YELLOW); GLUCOSE, URINE (UA) AUTO NEGATIVE (NEGATIVE); KETONE, URINE AUTO NEGATIVE (NEGATIVE); LEUKOCYTE ESTERASE, URINE AUTO 3+ (NEGATIVE); MUCUS, URINE SMALL (NEGATIVE); NITRITE, URINE AUTO NEGATIVE (NEGATIVE); PROTEIN, URINE AUTO NEGATIVE (NEGATIVE); RBC, URINE AUTO 14 /HPF (0-3); SPECIFIC GRAVITY URINE AUTO 1.011 (1.002-1.035); SQUAMOUS EPITHELIAL CELL UR AU 4 /HPF (0-6); UROBILINOGEN, URINE AUTO 0.2 mg/dL (0.0-2.0); WBC, URINE AUTO 76 /HPF (0-3)
== END ==
LOC: M LAB REF 19:20
PROVIDERS: ATTEND Family Medicine
DX: N39.0 Urinary tract infection, site not specified (principal)

== ENCOUNTER → 2024-04-05 | Outpatient (CLI) | payer OTHER ==
[2024-04-05 13:02] LABS: MONO REFLEX EBV COMP NEGATIVE (NEGATIVE)
== END ==
LOC: M LAB 11:46
PROVIDERS: ATTEND Physician Assistant Medical
DX: J02.0 Streptococcal pharyngitis (principal)

== ENCOUNTER 2024-05-13 22:17 | Emergency (ER) | payer OTHER ==
[~2024-05-13] VITALS: Ht 160 cm; Wt 81.1 kg
[2024-05-13 22:21] VITALS: TEMP 98.4
[2024-05-13 23:08] LABS: BASO % 0.3 % (0.0-1.0); EOS # 0.1 10^3/uL (0.0-0.5); EOS % 1.1 % (0.0-3.0); HEMATOCRIT 34.9 % (36.0-47.0); LYMPH # 1.9 10^3/uL (1.5-5.0); MEAN CORPUSCULAR HEMOGLOBIN 26.4 pg (27.0-33.0); MEAN CORPUSCULAR HGB CONC 31.5 g/dl (32.0-36.5); MEAN CORPUSCULAR VOLUME 83.7 fl (80.0-96.0); MONO # 0.7 10^3/uL (0.0-0.8); MONO % 5.6 % (2.0-8.0); NEUTROPHILS # 8.9 10^3/uL (1.5-8.5); NEUTROPHILS % 76.6 % (36.0-66.0); PLATELET COUNT, AUTOMATED 401 10^3/uL (150-450); RED BLOOD COUNT 4.17 10^6/uL (4.00-5.40); WHITE BLOOD COUNT 11.6 10^3/uL (4.0-10.0)
[2024-05-13 23:47] LABS: CK-MB VALUE MASS < 1.0 NG/ML (<3.6)
[2024-05-13 23:48] LABS: BLOOD UREA NITROGEN 13 MG/DL (9-23); CALCIUM LEVEL 8.9 MG/DL (8.5-10.1); CARBON DIOXIDE LEVEL 23 MMOL/L (20-31); CHLORIDE LEVEL 113 MMOL/L (98-107); CPK CREATINE PHOSPHOKINASE 82 U/L (34-145); GLOMERULAR FILTRATION RATE > 60.0 (>60); GLUCOSE, FASTING 127 MG/DL (60-100); MB/CK RELATIVE INDEX 1.21 (< OR =4); POTASSIUM SERUM 3.7 MMOL/L (3.5-5.1); SODIUM LEVEL 143 MMOL/L (136-145)
[2024-05-14 00:46] LABS: CK-MB VALUE MASS < 1.0 NG/ML (<3.6); CPK CREATINE PHOSPHOKINASE 69 U/L (34-145); MB/CK RELATIVE INDEX 1.44 (< OR =4)
[2024-05-14 02:01] VITALS: BP 109/73
[2024-05-14 02:02] VITALS: O2SAT 96
== END 2024-05-14 02:24 | disposition home or self-care (01) ==
LOC: M ED 22:17
DX: R07.89 Other chest pain (principal); Z91.030 Bee allergy status; Z91.010 Allergy to peanuts; Z79.1 Long term (current) use of non-steroidal anti-inflammatories (NSAID); Z79.810 Long term (current) use of selective estrogen receptor modulators (SERMs); Z79.899 Other long term (current) drug therapy

== ENCOUNTER → 2024-06-13 | Outpatient (REF) | payer OTHER | LOC: M SFHCPLAZ 12:34 | PROVIDERS: ATTEND Physician Assistant Medical | DX: R30.0 Dysuria (principal) ==

== ENCOUNTER → 2024-06-16 | Outpatient (CLI) | payer OTHER ==
[2024-06-16 17:20] LABS: BASO # 0.1 10^3/uL (0.0-0.2); BASO % 0.7 % (0.0-1.0); EOS # 0.1 10^3/uL (0.0-0.5); HEMATOCRIT 40.6 % (36.0-47.0); HEMOGLOBIN 12.3 g/dl (12.0-15.5); LYMPH # 1.5 10^3/uL (1.5-5.0); LYMPH % 21.7 % (24.0-44.0); MEAN CORPUSCULAR HEMOGLOBIN 25.8 pg (27.0-33.0); MEAN CORPUSCULAR HGB CONC 30.3 g/dl (32.0-36.5); MEAN CORPUSCULAR VOLUME 85.3 fl (80.0-96.0); MONO # 0.4 10^3/uL (0.0-0.8); MONO % 5.7 % (2.0-8.0); NEUTROPHILS # 4.9 10^3/uL (1.5-8.5); NEUTROPHILS % 70.8 % (36.0-66.0); PLATELET COUNT, AUTOMATED 392 10^3/uL (150-450); RED BLOOD COUNT 4.76 10^6/uL (4.00-5.40); WHITE BLOOD COUNT 6.9 10^3/uL (4.0-10.0)
[2024-06-16 17:27] LABS: ERYTHROCYTE SEDIMENTATION RATE 45 mm/hr (0-20)
[2024-06-16 17:40] LABS: ALBUMIN 3.5 G/DL (3.2-5.2); ALKALINE PHOSPHATASE 90 U/L (35-104); ALT/SGPT 26 U/L (7.0-40); AST/SGOT 15 U/L (<34); BILIRUBIN,TOTAL 0.3 MG/DL (0.3-1.2); BLOOD UREA NITROGEN 14 MG/DL (9-23); CARBON DIOXIDE LEVEL 27 MMOL/L (20-31); CHLORIDE LEVEL 105 MMOL/L (98-107); GLOMERULAR FILTRATION RATE > 60.0 (>60); GLUCOSE, FASTING 89 MG/DL (60-100); HEMOGLOBIN A1c 5.2 % (4.0-6.0); POTASSIUM SERUM 4.2 MMOL/L (3.5-5.1); SODIUM LEVEL 140 MMOL/L (136-145)
[2024-06-16 17:44] LABS: FREE T4 1.02 NG/DL (0.89-1.76); VITAMIN B12 LEVEL 435 PG/ML (211-911)
[2024-06-16 17:45] LABS: THYROID STIMULATING HORMONE 1.025 uIU/ML (0.55-4.78)
== END ==
LOC: M LAB 15:11
PROVIDERS: ATTEND Psychiatry & Neurology Neurology
DX: E11.9 Type 2 diabetes mellitus without complications (principal); E53.8 Deficiency of other specified B group vitamins; E07.9 Disorder of thyroid, unspecified

== ENCOUNTER → 2024-07-15 | Outpatient (CLI) | payer OTHER | LOC: M RAD 06:49 | PROVIDERS: ATTEND Physician Assistant | DX: R07.9 Chest pain, unspecified (principal); R06.02 Shortness of breath ==

== ENCOUNTER → 2024-07-21 | Outpatient (REF) | payer OTHER | LOC: M SFHCWAGY 17:46 | PROVIDERS: ATTEND Advanced Practice Midwife | DX: Z12.4 Encounter for screening for malignant neoplasm of cervix (principal) ==

== ENCOUNTER 2024-09-04 14:38 | Emergency (ER) | payer OTHER ==
[~2024-09-04] VITALS: Ht 160 cm; Wt 81.6 kg
[2024-09-04 16:41] LABS: BASO % 0.4 % (0.0-1.0); EOS # 0.1 10^3/uL (0.0-0.5); HEMATOCRIT 36.3 % (36.0-47.0); HEMOGLOBIN 11.6 g/dl (12.0-15.5); LYMPH # 3.1 10^3/uL (1.5-5.0); MEAN CORPUSCULAR HEMOGLOBIN 28.6 pg (27.0-33.0); MEAN CORPUSCULAR VOLUME 89.6 fl (80.0-96.0); MONO # 0.6 10^3/uL (0.0-0.8); MONO % 5.9 % (2.0-8.0); NEUTROPHILS # 6.4 10^3/uL (1.5-8.5); NEUTROPHILS % 62.4 % (36.0-66.0); PLATELET COUNT, AUTOMATED 291 10^3/uL (150-450); RED BLOOD COUNT 4.05 10^6/uL (4.00-5.40); WHITE BLOOD COUNT 10.2 10^3/uL (4.0-10.0)
[2024-09-04 17:10] LABS: CK-MB VALUE MASS < 1.0 NG/ML (<3.6)
[2024-09-04 17:12] LABS: BLOOD UREA NITROGEN 14 MG/DL (9-23); CALCIUM LEVEL 8.3 MG/DL (8.5-10.1); CARBON DIOXIDE LEVEL 26 MMOL/L (20-31); CHLORIDE LEVEL 107 MMOL/L (98-107); CPK CREATINE PHOSPHOKINASE 63 U/L (34-145); CREATININE FOR GFR 0.74 MG/DL (0.55-1.30); GLOMERULAR FILTRATION RATE > 90.0 (>60); GLUCOSE, FASTING 89 MG/DL (60-100); MB/CK RELATIVE INDEX 1.58 (< OR =4); POTASSIUM SERUM 4.4 MMOL/L (3.5-5.1); SODIUM LEVEL 140 MMOL/L (136-145)
[2024-09-04 17:17] LABS: HCG, SERUM QUALITATIVE NEGATIVE (NEGATIVE)
[2024-09-04 17:38] LABS: FREE T4 0.92 NG/DL (0.89-1.76); THYROID STIMULATING HORMONE 1.569 uIU/ML (0.55-4.78)
[2024-09-04 19:37] VITALS: BP 108/57; TEMP 98.3; O2SAT 99
== END 2024-09-04 19:48 | disposition home or self-care (01) ==
LOC: M ED 14:38
DX: R07.9 Chest pain, unspecified (principal); F10.10 Alcohol abuse, uncomplicated; Z91.030 Bee allergy status; Z91.010 Allergy to peanuts; Z79.1 Long term (current) use of non-steroidal anti-inflammatories (NSAID)

== ENCOUNTER → 2024-10-27 | Outpatient (CLI) | payer OTHER | LOC: M PLALAB 15:20 | PROVIDERS: ATTEND Advanced Practice Midwife | DX: Z34.81 Encounter for supervision of other normal pregnancy, first trimester (principal) ==